=== PATIENT | male | born 1945 | race Caucasian/White ===

== ENCOUNTER → 2018-08-11 | Outpatient (CLI) | payer MEDICARE ==
--- NOTE | 2018-08-11 09:11 | US ---
EXAMINATION TYPE: US prostate transrectal DATE OF EXAM: 08/11/2018 COMPARISON: US 12/09/2015 CLINICAL HISTORY: R97.20 Elevated PSA. Patient stated has had prostate biopsies with positive finding s of prostate CA This examination was performed using the transrectal probe. EXAM MEASUREMENTS: Gland Size: 5.5 x 5.7 x 4.2cm Volume: 68.9ml Predicted PSA: 8.27ng/ml Actual PSA (if available):11.8ng/ml ( done 07/27/2018) Central Gland: multiple small cysts seen in right and left gland; small calcifications seen in Centra l Gland. Peripheral Zone: hypoechoic area of ectasia seen in right gland = 0.7 x 0.7 x 0.6cm and may be hypoechoic area on prior US as discussed on the prior report. Enlarged prostate is noted as gland size is greater than 30.0ml. IMPRESSION: Mildly hypoechoic approximately 0.7 x 0.7 x 0.6 cm right posterior lateral mid gland nod ule is similar to the prior of 2015, as discussed on the prior report and is of intermediate suspicio n. Overall the prostate gland is enlarged and heterogenous with benign prostatic hyperplasia. No new additional nodules are seen sonographically. In this patient with positive biopsy results MRI prostat e could be performed to assist in staging. Predicted PSA = volume x 0.12 ng/ml Calculated Volume = 0.5236 x L x W x H
== END | disposition home or self-care (01) ==
LOC: RADUSMAIN 07:39
PROVIDERS: ATTEND Family Medicine
DX: N40.0 Benign prostatic hyperplasia without lower urinary tract symptoms (principal); N40.2 Nodular prostate without lower urinary tract symptoms
CPT/HCPCS: 76872

== ENCOUNTER → 2023-08-31 | Outpatient (CLI) | payer MEDICARE ==
[2023-08-31 16:30] LABS: Basophils % (A) 1.4 %; Eosinophils # (A) 0.37 X 10*3/uL (0.04-0.35); Eosinophils % (A) 5.3 %; HCT 48.8 % (39.6-50.0); HGB 15.8 g/dL (13.0-17.0); Lymphocytes # (A) 1.97 X 10*3/uL (0.90-5.00); Lymphocytes % (A) 28.3 %; MCH 28.9 pg (27.0-32.0); MCHC 32.4 g/dL (32.0-37.0); MCV 89.4 FL (80.0-97.0); Mean Platelet Volume 11.3 FL (9.5-12.2); Monocytes # (A) 0.72 X 10*3/uL (0.20-1.00); Monocytes % (A) 10.3 %; NRBC Per 100 WBC 0 X 10*3/uL (0.00-0.01); Neutrophils # (A) 3.78 X 10*3/uL (1.80-7.70); Neutrophils % (A) 54.3 %; Platelet Count 232 X 10*3/uL (140-440); RBC 5.46 X 10*6/uL (4.40-5.60); RDW 13.7 % (11.5-14.5); WBC 6.97 X 10*3/uL (4.50-10.00)
[2023-08-31 16:50] LABS: ALT 19 U/L (10-49); AST 21 U/L (14-35); Albumin 4.2 g/dL (3.8-4.9); Albumin/Globulin Ratio 1.62 Ratio (1.60-3.17); Alkaline Phosphatase 77 U/L (41-126); BUN/Creat Ratio 20.82 Ratio (12.00-20.00); Blood Urea Nitrogen 22.9 mg/dL (9.0-27.0); Calcium 9.3 mg/dL (8.7-10.3); Carbon Dioxide 20.5 mmol/L (21.6-31.8); Chloride 107 mmol/L (96-109); Chol/HDL Ratio 4.49 Ratio; Globulin 2.6 g/dL (1.6-3.3); Glucose 106 mg/dL (70-110); LDL Cholesterol,Calculated 148.3 mg/dL (0.0-131.0); Potassium 4.6 mmol/L (3.5-5.5); Rheumatoid Factor, Qnt <15 IU/mL (0-15); Sodium 140 mmol/L (135-145); Total Bilirubin 0.6 mg/dL (0.3-1.2); Total Protein 6.8 g/dL (6.2-8.2); Uric Acid 7.1 mg/dL (3.7-8.7); VLDL Calculation 19.64 mg/dL (5.00-40.00)
[2023-08-31 16:54] LABS: Erythrocyte Sedimentation Rate 23 mm/Hr (0-20)
== END | disposition home or self-care (01) ==
LOC: LABWHC1 10:02
PROVIDERS: ATTEND Nurse Practitioner Family
DX: I10 Essential (primary) hypertension (principal); J45.909 Unspecified asthma, uncomplicated; I45.10 Unspecified right bundle-branch block; I44.4 Left anterior fascicular block; I45.2 Bifascicular block; R00.1 Bradycardia, unspecified; R94.31 Abnormal electrocardiogram [ECG] [EKG]
CPT/HCPCS: 36415; 80053; 80061; 84153; 84443; 84550; 85025; 85652; 86038; 86039; 86140; 86431; 93005